=== PATIENT | female | born 1955 | race Asian ===

== ENCOUNTER 2017-06-19 18:28 | Inpatient (IN) | payer MEDICAID ==
[~2017-06-19] VITALS: Ht 162.6 cm; Wt 62.1 kg
[~2017-06-19 18:28] MED LIST: AMLO-512 PO; ASPI-825 PO; CHLO25TA3 PO; ISOS30TA6 PO; LISI40TA4 PO; MAGN400T30 PO; METO-391 PO; RANO500T3 PO; SIMV-261 PO
[2017-06-19] MEDS ORDERED: METF850T2 PO (18:38)
[2017-06-19] MEDS ORDERED: FLUP10 PO (18:38)
[2017-06-19] MEDS ORDERED: CALC-719 PO (18:38)
[2017-06-19] MEDS ORDERED: ATEN100T PO (18:38)
[2017-06-19] MEDS ORDERED: LOSA50TA37 PO (18:38)
[2017-06-19] MEDS ORDERED: ERGO500014 PO (18:38)
[2017-06-19] MEDS ORDERED: RISP4 PO (18:38)
[2017-06-19] MEDS ORDERED: BENZ1TAB10 PO (18:38)
[2017-06-19] MEDS ORDERED: GLIM2 PO (18:38)
[2017-06-19 18:42] LABS: GLUCOSE,POINT OF CARE 83 MG/DL (70-110)
[2017-06-19] MEDS ORDERED: ALBUTEROL SULFATE 2.5 MG/0.5 ML NEB SOLUTION NEB ONE (19:00)
[2017-06-19] MEDS ORDERED: ASPIRIN 81 MG CHEWABLE TABLET PO ONE (19:00)
[2017-06-19] MEDS ORDERED: FUROSEMIDE 40 MG/4 ML VIAL IVP ONE (19:00)
[2017-06-19] MEDS ORDERED: 0.9% SODIUM CHLORIDE 5 ML NEB SOLUTION NEB ONE (19:16)
[2017-06-19 19:44] LABS: BASOPHILS % (AUTO) 0.5 % (0.0-2.0); EOSINOPHILS % (AUTO) 3.3 % (1.0-6.0); HEMOGLOBIN 10.6 g/dL (12.0-16.0); LYMPHOCYTES # (AUTO) 1.2 K/uL (1.0-4.8); LYMPHOCYTES % (AUTO) 16.1 % (22.0-44.0); MEAN CORPUSCULAR HEMOGLOBIN 31.7 pg (26.0-34.0); MEAN CORPUSCULAR HGB CONC 33.2 G/dL (31.0-37.0); MEAN CORPUSCULAR VOLUME 95 fL (80-100); MONOCYTES # (AUTO) 0.8 K/uL (0.1-1.0); MONOCYTES % (AUTO) 9.9 % (2.0-9.0); NEUTROPHILS # (AUTO) 5.4 K/uL (1.8-7.7); NEUTROPHILS % (AUTO) 70.2 % (40.0-70.0); PLATELET COUNT (AUTO) 202 K/uL (150-450); RED BLOOD CELL COUNT(AUTO) 3.35 MIL/uL (4.00-5.20); RED CELL DISTRIBUTION WIDTH 14.3 % (11.5-14.5); WHITE BLOOD COUNT (AUTO) 7.7 K/uL (4.5-11.0)
[2017-06-19 19:55] LABS: ANION GAP 9 mmol/L (8-16); CALCIUM, TOTAL 9.3 mg/dL (8.8-10.5); CARBON DIOXIDE 25 mmol/L (22-29); CHLORIDE 109 mmol/L (98-107); CREATININE 1.26 mg/dL (0.60-1.30); GLOMERULAR FILTR. RATE CALC 43 mL/min (>60); POTASSIUM 4.3 mmol/L (3.5-5.1); SODIUM SERUM 143 mmol/L (136-145); UREA NITROGEN, BLOOD 44 mg/dL (7-18)
[2017-06-19 20:05] LABS: B-TYPE NATRIURETIC PEPTIDE 1120 pg/mL (0-100)
[2017-06-19 20:16] LABS: APPEARANCE,URINE CLEAR (CLEAR); GLUCOSE, URINE (UA) NEGATIVE (NEGATIVE); KETONES,URINE NEGATIVE (NEGATIVE); LEUKOCYTE ESTERASE ,URINE NEGATIVE (NEGATIVE); OCCULT BLOOD,URINE NEGATIVE (NEGATIVE); PROTEIN,URINE NEGATIVE (NEGATIVE)
[2017-06-19 20:19] LABS: ADD UA MICROSCOPIC NO
[2017-06-19 20:19] LABS: ALANINE AMINOTRANSFERASE 116 U/L (12-78); ALBUMIN 3.1 g/dL (3.4-5.0); ASPARTATE AMINOTRANSFERASE 56 U/L (15-37); BILIRUBIN,TOTAL 0.9 mg/dL (0.1-1.0); CREATINE KINASE MB 4.7 ng/mL (0-5); CREATINE KINASE, TOTAL 256 U/L (26-192); TOTAL PROTEIN, SERUM 5.8 g/dL (6.4-8.2)
[2017-06-19] MEDS ORDERED: ACETAMINOPHEN 500 MG TABLET PO ONE (20:30)
[2017-06-19] MEDS ORDERED: ACETAMINOPHEN 325 MG TABLET PO PRN (20:45)
[2017-06-19] MEDS ORDERED: 0.9% SODIUM CHLORIDE 10 ML SYRINGE IVP PRN (20:45)
[2017-06-19] MEDS ORDERED: ONDANSETRON HCL 4 MG/2 ML VIAL IVP PRN (20:45)
[2017-06-19 21:39] VITALS: BP 133/74
[2017-06-19 23:56] VITALS: BP 145/93
[2017-06-20] MEDS ORDERED: INFLUENZA VIRUS VACCINE QVS 2017-18 (3YR+)/PF 60 MCG/0.5 ML SYRINGE IM ONE (00:15)
[2017-06-20 03:35] VITALS: BP 129/72
[2017-06-20] MEDS: FUROSEMIDE 20 MG/2 ML VIAL IVP SCH ×3 (04:36→19:53)
[2017-06-20 07:55] VITALS: BP 153/65
[2017-06-20] MEDS: ASPIRIN 81 MG CHEWABLE TABLET PO SCH (08:39)
[2017-06-20] MEDS: ISOSORBIDE MONONITRATE 30 MG ER TABLET PO SCH (08:40)
[2017-06-20] MEDS: CALCIUM OYSTER SHELL 500 MG TABLET PO SCH (08:40)
[2017-06-20] MEDS: LOSARTAN POTASSIUM 50 MG TABLET PO SCH (08:40)
[2017-06-20] MEDS: BENZTROPINE MESYLATE 1 MG TABLET PO SCH (08:40)
[2017-06-20] MEDS: RisperiDONE 4 MG TABLET PO SCH (08:41)
[2017-06-20] MEDS: FluPHENAZine HCL 10 MG TABLET PO SCH (08:41)
[2017-06-20] MEDS: ATENOLOL 100 MG TABLET PO SCH (08:41)
[2017-06-20] MEDS ORDERED: ERGOCALCIFEROL (VIT D2) 50,000 UNITS CAPSULE PO SCH (09:00)
[2017-06-20 10:14] LABS: CALCIUM, TOTAL 9.2 mg/dL (8.8-10.5); CREATININE 1.21 mg/dL (0.60-1.30); MAGNESIUM 1.4 mg/dL (1.80-2.40); POTASSIUM 3.6 mmol/L (3.5-5.1)
[2017-06-20] MEDS ORDERED: POTASSIUM CHLORIDE 20 MEQ ER TABLET PO ONE (11:15)
[2017-06-20 11:16] VITALS: BP 137/85
[2017-06-20] MEDS ORDERED: MAGNESIUM SULFATE 4 GM/WATER 100 ML IV ONE (12:00)
[2017-06-20] MEDS ORDERED: SODIUM CHLORIDE 0.9% 100 ML ONE (12:21)
[2017-06-20 15:33] VITALS: BP 138/62
[2017-06-20] MEDS: ACETAMINOPHEN 325 MG TABLET PO PRN (17:25)
[2017-06-20 19:30] VITALS: BP 130/75
[2017-06-20 23:55] VITALS: BP 160/90
[2017-06-21 04:14] VITALS: BP 145/74
[2017-06-21] MEDS: ACETAMINOPHEN 325 MG TABLET PO PRN ×3 (04:45→17:14)
[2017-06-21 06:42] LABS: BASOPHILS % (AUTO) 0.5 % (0.0-2.0); HEMATOCRIT 33.3 % (36-46); HEMOGLOBIN 10.9 g/dL (12.0-16.0); LYMPHOCYTES # (AUTO) 0.7 K/uL (1.0-4.8); LYMPHOCYTES % (AUTO) 8.9 % (22.0-44.0); MEAN CORPUSCULAR HEMOGLOBIN 31.8 pg (26.0-34.0); MEAN CORPUSCULAR HGB CONC 32.8 G/dL (31.0-37.0); MEAN CORPUSCULAR VOLUME 97 fL (80-100); MONOCYTES # (AUTO) 0.7 K/uL (0.1-1.0); MONOCYTES % (AUTO) 8.6 % (2.0-9.0); NEUTROPHILS # (AUTO) 6.5 K/uL (1.8-7.7); PLATELET COUNT (AUTO) 174 K/uL (150-450); RED BLOOD CELL COUNT(AUTO) 3.44 MIL/uL (4.00-5.20); RED CELL DISTRIBUTION WIDTH 14.4 % (11.5-14.5); WHITE BLOOD COUNT (AUTO) 8.2 K/uL (4.5-11.0)
[2017-06-21 07:11] VITALS: BP 164/88
[2017-06-21 07:27] LABS: ALBUMIN 3.1 g/dL (3.4-5.0); CALCIUM, TOTAL 8.6 mg/dL (8.8-10.5); CHOL/HDL RATIO 2.6 (3.9-5.7); CREATININE 1.14 mg/dL (0.60-1.30); MAGNESIUM 1.8 mg/dL (1.80-2.40); POTASSIUM 3.8 mmol/L (3.5-5.1); TOTAL PROTEIN, SERUM 6.2 g/dL (6.4-8.2)
[2017-06-21 08:06] LABS: HEMOGLOBIN A1C 6.3 % (4.5-6.2)
[2017-06-21] MEDS: LOSARTAN POTASSIUM 50 MG TABLET PO SCH (08:29)
[2017-06-21] MEDS: ISOSORBIDE MONONITRATE 30 MG ER TABLET PO SCH (08:29)
[2017-06-21] MEDS: FluPHENAZine HCL 10 MG TABLET PO SCH (08:29)
[2017-06-21] MEDS: CALCIUM OYSTER SHELL 500 MG TABLET PO SCH (08:29)
[2017-06-21] MEDS: FUROSEMIDE 20 MG/2 ML VIAL IVP SCH ×2 (08:29→19:59)
[2017-06-21] MEDS: BENZTROPINE MESYLATE 1 MG TABLET PO SCH (08:29)
[2017-06-21] MEDS: ASPIRIN 81 MG CHEWABLE TABLET PO SCH (08:29)
[2017-06-21] MEDS: ATENOLOL 100 MG TABLET PO SCH (08:30)
[2017-06-21] MEDS: RisperiDONE 4 MG TABLET PO SCH (08:30)
[2017-06-21 11:20] VITALS: BP 153/77
[2017-06-21 11:28] VITALS: BP 132/58
[2017-06-21 15:39] VITALS: BP 130/52
[2017-06-21 18:09] LABS: GLUCOSE,POINT OF CARE 175 MG/DL (70-110)
[2017-06-21 19:46] VITALS: BP 136/74
[2017-06-22] VITALS (7 sets, daily range): BP systolic 122–149; BP diastolic 68–89
[2017-06-22 06:44] LABS: CALCIUM, TOTAL 8.5 mg/dL (8.8-10.5); CREATININE 1.04 mg/dL (0.60-1.30); MAGNESIUM 1.7 mg/dL (1.80-2.40); POTASSIUM 3.9 mmol/L (3.5-5.1)
[2017-06-22] MEDS: ASPIRIN 81 MG CHEWABLE TABLET PO SCH (08:20)
[2017-06-22] MEDS: FUROSEMIDE 20 MG/2 ML VIAL IVP SCH ×2 (08:20→22:01)
[2017-06-22] MEDS: RisperiDONE 4 MG TABLET PO SCH (08:21)
[2017-06-22] MEDS: FluPHENAZine HCL 10 MG TABLET PO SCH (08:21)
[2017-06-22] MEDS: ATENOLOL 100 MG TABLET PO SCH (08:21)
[2017-06-22] MEDS: CALCIUM OYSTER SHELL 500 MG TABLET PO SCH (08:21)
[2017-06-22] MEDS: LOSARTAN POTASSIUM 50 MG TABLET PO SCH (08:21)
[2017-06-22] MEDS: ISOSORBIDE MONONITRATE 30 MG ER TABLET PO SCH (08:21)
[2017-06-22] MEDS: BENZTROPINE MESYLATE 1 MG TABLET PO SCH (08:21)
[2017-06-22] MEDS ORDERED: MAGNESIUM SULFATE 2 GM in DEXTROSE 5%-WATER 50 ML IV ONE (15:15)
[2017-06-22] MEDS ORDERED: ALBUTEROL SULFATE 2.5 MG/0.5 ML NEB SOLUTION NEB PRN (15:15)
[2017-06-22] MEDS ORDERED: IPRATROPIUM BROMIDE 0.5 MG/2.5 ML NEB SOLUTION NEB PRN (15:15)
[2017-06-23 05:19] VITALS: BP 143/88
[2017-06-23 08:09] VITALS: BP 161/79
[2017-06-23] MEDS ORDERED: ATENOLOL 50 MG TABLET PO SCH (09:00)
[2017-06-23] MEDS: ASPIRIN 81 MG CHEWABLE TABLET PO SCH (09:24)
[2017-06-23] MEDS: ISOSORBIDE MONONITRATE 30 MG ER TABLET PO SCH (09:24)
[2017-06-23] MEDS: FUROSEMIDE 20 MG/2 ML VIAL IVP SCH ×2 (09:25→21:03)
[2017-06-23] MEDS: RisperiDONE 4 MG TABLET PO SCH (09:25)
[2017-06-23] MEDS: FluPHENAZine HCL 10 MG TABLET PO SCH (09:25)
[2017-06-23] MEDS: LOSARTAN POTASSIUM 50 MG TABLET PO SCH (09:25)
[2017-06-23] MEDS: BENZTROPINE MESYLATE 1 MG TABLET PO SCH (09:25)
[2017-06-23] MEDS: CALCIUM OYSTER SHELL 500 MG TABLET PO SCH (09:25)
[2017-06-23] MEDS: AmLODIPine BESYLATE 5 MG TABLET PO SCH ×2 (09:45→11:16)
[2017-06-23 09:47] LABS: CALCIUM, TOTAL 8.6 mg/dL (8.8-10.5); CREATININE 0.99 mg/dL (0.60-1.30); POTASSIUM 4.2 mmol/L (3.5-5.1)
[2017-06-23 12:00] VITALS: BP 155/79
[2017-06-23 16:22] VITALS: BP 140/85
[2017-06-23 19:36] VITALS: BP 119/79
[2017-06-23 23:17] VITALS: BP 122/63
[2017-06-24 04:16] VITALS: BP 135/86
[2017-06-24 07:19] VITALS: BP 165/76
[2017-06-24 07:44] LABS: CALCIUM, TOTAL 9.1 mg/dL (8.8-10.5); CREATININE 0.95 mg/dL (0.60-1.30); MAGNESIUM 1.9 mg/dL (1.80-2.40)
[2017-06-24] MEDS: FUROSEMIDE 20 MG/2 ML VIAL IVP SCH (08:25)
[2017-06-24] MEDS: CALCIUM OYSTER SHELL 500 MG TABLET PO SCH (08:26)
[2017-06-24] MEDS: FluPHENAZine HCL 10 MG TABLET PO SCH (08:26)
[2017-06-24] MEDS: BENZTROPINE MESYLATE 1 MG TABLET PO SCH (08:26)
[2017-06-24] MEDS: AmLODIPine BESYLATE 5 MG TABLET PO SCH (08:26)
[2017-06-24] MEDS: LOSARTAN POTASSIUM 50 MG TABLET PO SCH (08:26)
[2017-06-24] MEDS: ISOSORBIDE MONONITRATE 30 MG ER TABLET PO SCH (08:26)
[2017-06-24] MEDS: RisperiDONE 4 MG TABLET PO SCH (08:26)
[2017-06-24] MEDS: ASPIRIN 81 MG CHEWABLE TABLET PO SCH (08:26)
[2017-06-24 11:42] VITALS: BP 121/87
[2017-06-24] MEDS: ACETAMINOPHEN 325 MG TABLET PO PRN (13:06)
[2017-06-24] MEDS ORDERED: FURO20 PO (14:12)
[2017-06-24] MEDS ORDERED: SLOWK8 PO (14:14)
[2017-06-24 15:54] VITALS: BP 118/68
== END 2017-06-24 17:05 | disposition home or self-care (01) | DRG 194 ==
LOC: EMS 18:31 → 5S 20:47
PROVIDERS: ADMIT Family Medicine; ATTEND Family Medicine
PROC: 3E0234Z Introduction of Serum, Toxoid and Vaccine into Muscle, Percutaneous Approach (ICD-10-PCS; principal; 2017-06-20)
DX: I11.0 Hypertensive heart disease with heart failure (principal); E44.1 Mild protein-calorie malnutrition; I48.91 Unspecified atrial fibrillation; E11.9 Type 2 diabetes mellitus without complications; R00.1 Bradycardia, unspecified; I50.9 Heart failure, unspecified; I25.10 Atherosclerotic heart disease of native coronary artery without angina pectoris; Z68.23 Body mass index [BMI] 23.0-23.9, adult; Z79.82 Long term (current) use of aspirin; Z83.3 Family history of diabetes mellitus; Z82.49 Family history of ischemic heart disease and other diseases of the circulatory system; Z23 Encounter for immunization
CPT/HCPCS: 82962; 83036; 83735; 90471; 93005; 93306; 94640; 96374; 99291; J1940; J3475; J7050; J7060

== ENCOUNTER 2017-12-07 15:57 | Emergency (ER) | payer MEDICAID ==
[~2017-12-07] VITALS: Ht 157.5 cm; Wt 68.2 kg
[~2017-12-07 15:57] MED LIST changes: -AMLO-512 PO; +ATEN100T PO; +BENZ1TAB10 PO; +CALC-719 PO; -CHLO25TA3 PO; +ERGO500014 PO; +FLUP10 PO; +FURO20 PO; +GLIM2 PO; -LISI40TA4 PO; +LOSA50TA37 PO; -MAGN400T30 PO; +METF850T2 PO; -METO-391 PO; -RANO500T3 PO; +RISP4 PO; -SIMV-261 PO; +SLOWK8 PO
[2017-12-07] MEDS ORDERED: ERGO2000 PO (16:13)
[2017-12-07] MEDS ORDERED: NITR.4 SL (16:13)
[2017-12-07 16:17] LABS: GLUCOSE,POINT OF CARE 173 MG/DL (70-110)
[2017-12-07 18:31] VITALS: BP 138/84
== END 2017-12-07 18:36 | disposition home or self-care (01) ==
LOC: EMS 15:57
DX: S00.12XA Contusion of left eyelid and periocular area, initial encounter (principal); X58.XXXA Exposure to other specified factors, initial encounter; Y93.89 Activity, other specified; Y92.89 Other specified places as the place of occurrence of the external cause; Y99.8 Other external cause status
CPT/HCPCS: 70450; 99284

== ENCOUNTER 2018-01-22 20:13 | Emergency (ER) | payer MEDICAID ==
[~2018-01-22] VITALS: Ht 157.5 cm; Wt 68.0 kg
[~2018-01-22 20:13] MED LIST changes: +ERGO2000 PO; -ERGO500014 PO; -FLUP10 PO; +NITR.4 SL
[2018-01-22 21:03] LABS: GLUCOSE,POINT OF CARE 109 MG/DL (70-110)
[2018-01-22 22:50] VITALS: BP 135/71
== END 2018-01-22 22:57 | disposition home or self-care (01) ==
LOC: EMS 20:15
DX: S00.11XA Contusion of right eyelid and periocular area, initial encounter (principal); S00.83XA Contusion of other part of head, initial encounter; W18.39XA Other fall on same level, initial encounter; Y93.89 Activity, other specified; Y92.89 Other specified places as the place of occurrence of the external cause; Y99.8 Other external cause status
CPT/HCPCS: 70450; 99284

== ENCOUNTER 2018-03-19 20:07 | Emergency (ER) | payer MEDICAID ==
[~2018-03-19] VITALS: Ht 162.6 cm; Wt 63.6 kg
[2018-03-19] MEDS ORDERED: RISP2 PO (20:17)
[2018-03-19] MEDS ORDERED: METF500T6 PO (20:17)
[2018-03-19 20:23] LABS: GLUCOSE,POINT OF CARE 99 MG/DL (70-110)
[2018-03-19 22:16] VITALS: BP 163/96
== END 2018-03-20 00:18 | disposition home or self-care (01) ==
LOC: EMS 20:08
DX: S01.01XA Laceration without foreign body of scalp, initial encounter (principal); E11.9 Type 2 diabetes mellitus without complications; I10 Essential (primary) hypertension; Z79.82 Long term (current) use of aspirin; Z79.899 Other long term (current) drug therapy; Z79.84 Long term (current) use of oral hypoglycemic drugs; W45.8XXA Other foreign body or object entering through skin, initial encounter; Y93.89 Activity, other specified; Y92.89 Other specified places as the place of occurrence of the external cause; Y99.8 Other external cause status
CPT/HCPCS: 12001; 70450; 99284

== ENCOUNTER 2021-08-01 21:20 | Emergency (ER) | payer MEDICAID ==
[~2021-08-01] VITALS: Ht 157.5 cm; Wt 65.9 kg
[~2021-08-01 21:20] MED LIST changes: -ATEN100T PO; +ATEN100T92 PO; -FURO20 PO; -ISOS30TA6 PO; +ISOS30TA92 PO; -LOSA50TA37 PO; +METF-1211 PO; -METF850T2 PO; -NITR.4 SL; +NITR0.4T52 SL; +RISP2TAB45 PO; -RISP4 PO; -SLOWK8 PO
[2021-08-01] MEDS ORDERED: ATOR20TA65 PO (22:25)
[2021-08-01] MEDS ORDERED: OS500 PO (22:25)
[2021-08-01] MEDS ORDERED: FURO-152 PO (22:25)
[2021-08-01] MEDS ORDERED: AMLO-257 PO (22:25)
[2021-08-01] MEDS ORDERED: LOSA100T58 PO (22:25)
[2021-08-01] MEDS ORDERED: RIVA15TA PO (22:25)
[2021-08-01 22:49] LABS: BASOPHILS % (AUTO) 0.8 % (0.0-2.0); EOSINOPHILS % (AUTO) 6.2 % (1.0-6.0); LYMPHOCYTES # (AUTO) 0.9 K/uL (1.0-4.8); MEAN CORPUSCULAR HEMOGLOBIN 31.1 pg (26.0-34.0); MEAN CORPUSCULAR HGB CONC 33.3 G/dL (31.0-37.0); MEAN CORPUSCULAR VOLUME 93 fL (80-100); MONOCYTES # (AUTO) 0.6 K/uL (0.1-1.0); MONOCYTES % (AUTO) 9.3 % (2.0-9.0); NEUTROPHILS # (AUTO) 4.6 K/uL (1.8-7.7); NEUTROPHILS % (AUTO) 69.7 % (40.0-70.0); PLATELET COUNT (AUTO) 235 K/uL (150-450); RED BLOOD CELL COUNT(AUTO) 3.54 MIL/uL (4.00-5.20)
[2021-08-01 22:59] LABS: CALCIUM, TOTAL 9.5 mg/dL (8.8-10.5); CREATININE 1.1 mg/dL (0.60-1.30); POTASSIUM 5.1 mmol/L (3.5-5.1)
[2021-08-01 23:05] LABS: ALBUMIN 3.5 g/dL (3.4-5.0); BILIRUBIN,TOTAL 0.6 mg/dL (0.1-1.0); TOTAL PROTEIN, SERUM 7.1 g/dL (6.4-8.2)
[2021-08-02 11:41] VITALS: BP 128/80
== END 2021-08-02 11:42 | disposition home or self-care (01) ==
LOC: EMS 21:21
DX: R07.89 Other chest pain (principal); I48.91 Unspecified atrial fibrillation; I11.0 Hypertensive heart disease with heart failure; I50.9 Heart failure, unspecified; E11.9 Type 2 diabetes mellitus without complications; Z79.82 Long term (current) use of aspirin; Z79.84 Long term (current) use of oral hypoglycemic drugs; Z79.899 Other long term (current) drug therapy
CPT/HCPCS: 71045; 80053; 82962; 83690; 83880; 84484; 85025; 93005; 99285; 36415-L1; 36415-TC

== ENCOUNTER 2022-04-24 15:30 | Emergency (ER) | payer MEDICARE, MEDICAID ==
[~2022-04-24] VITALS: Ht 157.5 cm; Wt 59.1 kg
[~2022-04-24 15:30] MED LIST changes: +AMLO-257 PO; +ATOR20TA65 PO; -BENZ1TAB10 PO; +BENZ1TAB96 PO; +FURO-152 PO; +LOSA100T58 PO; +OS500 PO; +RIVA15TA PO
[2022-04-24] MEDS ORDERED: METF-1185 PO (15:40)
[2022-04-24] MEDS ORDERED: AMLO-257 PO (15:40)
[2022-04-24 16:02] LABS: BASOPHILS % (AUTO) 0.7 % (0.0-2.0); EOSINOPHILS % (AUTO) 3.6 % (1.0-6.0); HEMATOCRIT 39.8 % (36-46); HEMOGLOBIN 12.7 g/dL (12.0-16.0); LYMPHOCYTES # (AUTO) 1.2 K/uL (1.0-4.8); LYMPHOCYTES % (AUTO) 21.4 % (22.0-44.0); MEAN CORPUSCULAR HEMOGLOBIN 30.5 pg (26.0-34.0); MEAN CORPUSCULAR HGB CONC 31.9 G/dL (31.0-37.0); MEAN CORPUSCULAR VOLUME 96 fL (80-100); MONOCYTES # (AUTO) 0.3 K/uL (0.1-1.0); MONOCYTES % (AUTO) 5.6 % (2.0-9.0); NEUTROPHILS # (AUTO) 3.7 K/uL (1.8-7.7); NEUTROPHILS % (AUTO) 68.7 % (40.0-70.0); PLATELET COUNT (AUTO) 190 K/uL (150-450); RED BLOOD CELL COUNT(AUTO) 4.16 MIL/uL (4.00-5.20); RED CELL DISTRIBUTION WIDTH 13.4 % (11.5-14.5)
[2022-04-24 16:13] LABS: INR 1.1 (0.9-1.1); PROTHROMBIN TIME 11.4 SEC (9.4-11.6)
[2022-04-24] MEDS ORDERED: BACITRACIN 28 GM OINTMENT TP ONE (16:15)
[2022-04-24] MEDS ORDERED: CHOL25TA4 PO (16:42)
[2022-04-24] MEDS ORDERED: OS500 PO (16:42)
[2022-04-24 16:46] LABS: CALCIUM, TOTAL 9.5 mg/dL (8.8-10.5); CREATININE 0.93 mg/dL (0.60-1.30); POTASSIUM 4.1 mmol/L (3.5-5.1)
[2022-04-24 16:52] LABS: ALBUMIN 4.1 g/dL (3.4-5.0); BILIRUBIN,TOTAL 1.2 mg/dL (0.1-1.0); TOTAL PROTEIN, SERUM 7.7 g/dL (6.4-8.2)
[2022-04-24 18:06] VITALS: BP 116/75
== END 2022-04-24 18:26 | disposition home or self-care (01) ==
LOC: EMS 15:30
DX: S00.01XA Abrasion of scalp, initial encounter (principal); I11.0 Hypertensive heart disease with heart failure; I50.9 Heart failure, unspecified; F03.90 Unspecified dementia, unspecified severity, without behavioral disturbance, psychotic disturbance, mood disturbance, and anxiety; E11.9 Type 2 diabetes mellitus without complications; F29 Unspecified psychosis not due to a substance or known physiological condition; I34.0 Nonrheumatic mitral (valve) insufficiency; W19.XXXA Unspecified fall, initial encounter; Y93.89 Activity, other specified; Y92.89 Other specified places as the place of occurrence of the external cause; Y99.8 Other external cause status
CPT/HCPCS: 70450; 72125; 80053; 82962; 83880; 84484; 85025; 85610; 85730; 93005; 99285

== ENCOUNTER 2022-10-06 15:41 | Inpatient (IN) | payer MEDICARE, MEDICAID ==
[~2022-10-06] VITALS: Ht 160 cm; Wt 65.3 kg
[~2022-10-06 15:41] MED LIST changes: -ASPI-825 PO; -CALC-719 PO; +CHOL25TA4 PO; -ERGO2000 PO; +METF-1185 PO; -METF-1211 PO
[2022-10-06] MEDS ORDERED: DAPA5TAB PO (15:52)
[2022-10-06] MEDS ORDERED: SPIR-37 PO (15:52)
[2022-10-06] MEDS ORDERED: BECL10.6 IH (15:52)
[2022-10-06] MEDS ORDERED: OS500 PO (15:52)
[2022-10-06] MEDS ORDERED: ALBU8HFA IH (15:52)
[2022-10-06] MEDS ORDERED: FLUT15.812 NASAL (15:52)
[2022-10-06] MEDS ORDERED: POTA-189 PO (15:52)
[2022-10-06] MEDS ORDERED: CETI5TAB14 PO (15:52)
[2022-10-06] MEDS ORDERED: MONT-35 PO (15:52)
[2022-10-06] MEDS ORDERED: FAMO20 PO (15:52)
[2022-10-06] MEDS ORDERED: CETI-450 PO (17:39)
[2022-10-06] MEDS ORDERED: BACITRACIN 0.9 GM PACKET OINTMENT TP ONE (17:45)
[2022-10-06] MEDS ORDERED: PERTUSS(ACELL),DIPH,TET VAC/PF 0.5 ML SYRINGE IM. ONE (17:45)
[2022-10-06 18:15] LABS: BASOPHILS % (AUTO) 0.7 % (0.0-2.0); EOSINOPHILS % (AUTO) 4.2 % (1.0-6.0); HEMATOCRIT 35.3 % (36-46); HEMOGLOBIN 11.4 g/dL (12.0-16.0); LYMPHOCYTES # (AUTO) 1.2 K/uL (1.0-4.8); LYMPHOCYTES % (AUTO) 14.3 % (22.0-44.0); MEAN CORPUSCULAR HGB CONC 32.2 G/dL (31.0-37.0); MEAN CORPUSCULAR VOLUME 93 fL (80-100); MONOCYTES # (AUTO) 0.7 K/uL (0.1-1.0); MONOCYTES % (AUTO) 8.6 % (2.0-9.0); NEUTROPHILS # (AUTO) 6.2 K/uL (1.8-7.7); NEUTROPHILS % (AUTO) 72.2 % (40.0-70.0); PLATELET COUNT (AUTO) 195 K/uL (150-450); RED CELL DISTRIBUTION WIDTH 14.1 % (11.5-14.5)
[2022-10-06 18:22] LABS: CALCIUM, TOTAL 9.3 mg/dL (8.8-10.5); CREATININE 1.32 mg/dL (0.60-1.30); POTASSIUM 4.8 mmol/L (3.5-5.1)
[2022-10-06 18:26] LABS: INR 1.1 (0.9-1.1); PROTHROMBIN TIME 11.5 SEC (9.4-11.6)
[2022-10-06 18:47] LABS: ALBUMIN 3.7 g/dL (3.4-5.0); BILIRUBIN,TOTAL 0.6 mg/dL (0.1-1.0); MAGNESIUM 1.6 mg/dL (1.80-2.40); PHOSPHORUS 3.9 mg/dL (2.5-4.9); TOTAL PROTEIN, SERUM 7.1 g/dL (6.4-8.2)
[2022-10-06] MEDS ORDERED: MAGNESIUM SULFATE 1 GM in DEXTROSE 5%-WATER 50 ML IV ONE (19:15)
[2022-10-06] MEDS ORDERED: ACETAMINOPHEN 325 MG TABLET PO PRN (19:30)
[2022-10-06] MEDS ORDERED: ONDANSETRON HCL 4 MG/2 ML VIAL IVP PRN (19:30)
[2022-10-06 19:33] LABS: COVID AG,FIA SOURCE NASOPHARYNGEAL
[2022-10-06 20:38] LABS: RETICULOCYTE % (AUTO) 2.4 % (0.5-2.3)
[2022-10-06 20:45] LABS: % IRON SATURATION 10.1 % (22-44)
[2022-10-06] MEDS: DOCUSATE SODIUM 100 MG CAPSULE PO SCH (21:00)
[2022-10-06] MEDS ORDERED: PIPERACILLIN SODIUM/TAZOBACTAM 2.25 GM in DEXTROSE 5%-WATER 50 ML IV SCH (22:00)
[2022-10-06] MEDS ORDERED: DEXTROSE 50%-WATER 25 GM/50 ML SYRINGE IVP PRN (22:00)
[2022-10-06] MEDS ORDERED: NITROGLYCERIN 0.4 MG SUBLINGUAL TABLET #25 SL PRN (22:00)
[2022-10-06] MEDS ORDERED: HALOPERIDOL LACTATE 5 MG/ML VIAL IM ONE (22:00)
[2022-10-06] MEDS ORDERED: MAGNESIUM SULFATE 2 GM/WATER 50 ML IV ONE (22:00)
[2022-10-07 01:19] VITALS: BP 138/66
[2022-10-07] MEDS ORDERED: SODIUM CHLORIDE 0.9% 250 ML IV ONE (03:27)
[2022-10-07] MEDS ORDERED: HALOPERIDOL LACTATE 5 MG/ML VIAL IM ONE (04:45)
[2022-10-07 05:25] VITALS: BP 140/77
[2022-10-07] MEDS: MONTELUKAST SODIUM 10 MG TABLET PO SCH (08:17)
[2022-10-07] MEDS: RisperiDONE 2 MG TABLET PO SCH (08:18)
[2022-10-07] MEDS: AmLODIPine BESYLATE 5 MG TABLET PO SCH (08:18)
[2022-10-07] MEDS: DOCUSATE SODIUM 100 MG CAPSULE PO SCH ×2 (08:18→20:05)
[2022-10-07] MEDS: CETIRIZINE HCL 10 MG TABLET PO SCH (08:18)
[2022-10-07 08:21] VITALS: BP 127/71
[2022-10-07] MEDS: CALCIUM [CALCIUM CARB 1250MG] 500 MG TABLET PO SCH (08:22)
[2022-10-07] MEDS: SPIRONOLACTONE 25 MG TABLET PO SCH (08:22)
[2022-10-07] MEDS ORDERED: BENZTROPINE MESYLATE 1 MG TABLET PO SCH (09:00)
[2022-10-07] MEDS ORDERED: ATENOLOL 50 MG TABLET PO SCH (09:00)
[2022-10-07] MEDS ORDERED: FAMOTIDINE 20 MG TABLET PO SCH (09:00)
[2022-10-07 11:19] VITALS: BP 124/71
[2022-10-07] MEDS: INSULIN LISPRO 100 UNITS/ML SQ PRN ×2 (12:24→20:10)
[2022-10-07 15:17] VITALS: BP 124/72
[2022-10-07 15:21] LABS: GLUCOMETER DEV NAME(LOC) 5N.1C; GLUCOSE,POINT OF CARE 165 MG/DL (70-110)
[2022-10-07] MEDS: RIVAROXABAN 15 MG TABLET PO SCH (18:27)
[2022-10-07 19:54] VITALS: BP 118/71
[2022-10-07] MEDS: ATORVASTATIN CALCIUM 20 MG TABLET PO SCH (20:05)
[2022-10-07] MEDS: CHOLECALCIFEROL (VIT D3) 1,000 UNITS [25 MCG] TABLET PO SCH (20:05)
[2022-10-07] MEDS: ISOSORBIDE MONONITRATE 30 MG ER TABLET PO SCH (20:05)
[2022-10-07 20:41] LABS: GLUCOMETER DEV NAME(LOC) 5S.2C; GLUCOSE,POINT OF CARE 155 MG/DL (70-110)
[2022-10-08] VITALS (7 sets, daily range): BP systolic 118–168; BP diastolic 65–98
[2022-10-08 03:56] LABS: GLUCOMETER DEV NAME(LOC) 5N.1C; GLUCOSE,POINT OF CARE 113 MG/DL (70-110)
[2022-10-08] MEDS: CALCIUM [CALCIUM CARB 1250MG] 500 MG TABLET PO SCH (08:52)
[2022-10-08] MEDS: AmLODIPine BESYLATE 5 MG TABLET PO SCH (08:52)
[2022-10-08] MEDS: MONTELUKAST SODIUM 10 MG TABLET PO SCH (08:52)
[2022-10-08] MEDS: SPIRONOLACTONE 25 MG TABLET PO SCH (08:52)
[2022-10-08] MEDS: DOCUSATE SODIUM 100 MG CAPSULE PO SCH ×2 (08:52→21:00)
[2022-10-08] MEDS: RisperiDONE 2 MG TABLET PO SCH (08:52)
[2022-10-08] MEDS: CETIRIZINE HCL 10 MG TABLET PO SCH (08:52)
[2022-10-08] MEDS ORDERED: FUROSEMIDE 20 MG TABLET PO SCH (09:00)
[2022-10-08 12:41] LABS: GLUCOMETER DEV NAME(LOC) 5N.1C; GLUCOSE,POINT OF CARE 105 MG/DL (70-110)
[2022-10-08 17:16] LABS: GLUCOMETER DEV NAME(LOC) 5N.1C; GLUCOSE,POINT OF CARE 212 MG/DL (70-110)
[2022-10-08] MEDS: RIVAROXABAN 15 MG TABLET PO SCH (17:24)
[2022-10-08] MEDS: ISOSORBIDE MONONITRATE 30 MG ER TABLET PO SCH (20:23)
[2022-10-08] MEDS: CHOLECALCIFEROL (VIT D3) 1,000 UNITS [25 MCG] TABLET PO SCH (20:23)
[2022-10-08] MEDS: ATORVASTATIN CALCIUM 20 MG TABLET PO SCH (20:23)
[2022-10-08] MEDS: INSULIN LISPRO 100 UNITS/ML SQ PRN (20:25)
[2022-10-09 00:37] VITALS: BP 108/51
[2022-10-09 05:00] VITALS: BP 150/89
[2022-10-09 06:07] LABS: GLUCOMETER DEV NAME(LOC) 5N.1C; GLUCOSE,POINT OF CARE 110 MG/DL (70-110)
[2022-10-09 06:07] LABS: GLUCOMETER DEV NAME(LOC) 5N.1C; GLUCOSE,POINT OF CARE 99 MG/DL (70-110)
[2022-10-09 07:30] VITALS: BP 117/58
[2022-10-09 07:37] LABS: BASOPHILS % (AUTO) 0.8 % (0.0-2.0); EOSINOPHILS % (AUTO) 4.8 % (1.0-6.0); HEMATOCRIT 35.1 % (36-46); HEMOGLOBIN 11.4 g/dL (12.0-16.0); LYMPHOCYTES # (AUTO) 1.5 K/uL (1.0-4.8); LYMPHOCYTES % (AUTO) 24.5 % (22.0-44.0); MEAN CORPUSCULAR HEMOGLOBIN 29.9 pg (26.0-34.0); MEAN CORPUSCULAR HGB CONC 32.3 G/dL (31.0-37.0); MEAN CORPUSCULAR VOLUME 93 fL (80-100); MONOCYTES # (AUTO) 0.6 K/uL (0.1-1.0); MONOCYTES % (AUTO) 10.3 % (2.0-9.0); NEUTROPHILS # (AUTO) 3.7 K/uL (1.8-7.7); NEUTROPHILS % (AUTO) 59.6 % (40.0-70.0); PLATELET COUNT (AUTO) 183 K/uL (150-450); RED CELL DISTRIBUTION WIDTH 14.1 % (11.5-14.5)
[2022-10-09 07:56] LABS: CALCIUM, TOTAL 9.4 mg/dL (8.8-10.5); CREATININE 1.06 mg/dL (0.60-1.30); POTASSIUM 4.9 mmol/L (3.5-5.1); THYROID STIMULATING HORMONE 2.1 uIU/mL (0.36-3.74)
[2022-10-09] MEDS: CETIRIZINE HCL 10 MG TABLET PO SCH (08:53)
[2022-10-09] MEDS: RisperiDONE 2 MG TABLET PO SCH (08:53)
[2022-10-09] MEDS: DOCUSATE SODIUM 100 MG CAPSULE PO SCH ×2 (08:53→20:31)
[2022-10-09] MEDS: MONTELUKAST SODIUM 10 MG TABLET PO SCH (08:54)
[2022-10-09] MEDS: SPIRONOLACTONE 25 MG TABLET PO SCH (08:54)
[2022-10-09] MEDS: CALCIUM [CALCIUM CARB 1250MG] 500 MG TABLET PO SCH (08:54)
[2022-10-09] MEDS: AmLODIPine BESYLATE 5 MG TABLET PO SCH (08:54)
[2022-10-09 11:12] VITALS: BP 117/51
[2022-10-09] MEDS ORDERED: DIGOXIN 125 MCG TABLET PO SCH (12:30)
[2022-10-09] MEDS: INSULIN LISPRO 100 UNITS/ML SQ PRN ×2 (12:39→20:38)
[2022-10-09 15:46] VITALS: BP 146/82
[2022-10-09] MEDS: RIVAROXABAN 15 MG TABLET PO SCH (18:30)
[2022-10-09 20:00] VITALS: BP 136/75
[2022-10-09 20:30] LABS: GLUCOMETER DEV NAME(LOC) 5N.1C; GLUCOSE,POINT OF CARE 319 MG/DL (70-110)
[2022-10-09 20:30] LABS: GLUCOMETER DEV NAME(LOC) 5N.1C; GLUCOSE,POINT OF CARE 79 MG/DL (70-110)
[2022-10-09] MEDS: CHOLECALCIFEROL (VIT D3) 1,000 UNITS [25 MCG] TABLET PO SCH (20:32)
[2022-10-09] MEDS: ATORVASTATIN CALCIUM 20 MG TABLET PO SCH (20:32)
[2022-10-09] MEDS: ISOSORBIDE MONONITRATE 30 MG ER TABLET PO SCH (20:32)
[2022-10-09 21:16] LABS: GLUCOMETER DEV NAME(LOC) 5S.2C; GLUCOSE,POINT OF CARE 309 MG/DL (70-110)
[2022-10-09 21:32] LABS: GLUCOMETER DEV NAME(LOC) 5S.1B; GLUCOSE,POINT OF CARE 216 MG/DL (70-110)
[2022-10-10 00:45] VITALS: BP 132/71
[2022-10-10 06:21] LABS: BASOPHILS % (AUTO) 0.8 % (0.0-2.0); EOSINOPHILS % (AUTO) 6.9 % (1.0-6.0); HEMATOCRIT 38.2 % (36-46); HEMOGLOBIN 12.2 g/dL (12.0-16.0); LYMPHOCYTES # (AUTO) 1.4 K/uL (1.0-4.8); LYMPHOCYTES % (AUTO) 21.3 % (22.0-44.0); MEAN CORPUSCULAR HEMOGLOBIN 29.5 pg (26.0-34.0); MEAN CORPUSCULAR VOLUME 92 fL (80-100); MONOCYTES # (AUTO) 0.6 K/uL (0.1-1.0); MONOCYTES % (AUTO) 9.4 % (2.0-9.0); NEUTROPHILS % (AUTO) 61.6 % (40.0-70.0); PLATELET COUNT (AUTO) 208 K/uL (150-450); RED BLOOD CELL COUNT(AUTO) 4.14 MIL/uL (4.00-5.20)
[2022-10-10 06:36] LABS: ALBUMIN 3.8 g/dL (3.4-5.0); BILIRUBIN,TOTAL 1.1 mg/dL (0.1-1.0); CALCIUM, TOTAL 9.5 mg/dL (8.8-10.5); CREATININE 1.01 mg/dL (0.60-1.30); TOTAL PROTEIN, SERUM 7.5 g/dL (6.4-8.2)
[2022-10-10 08:04] VITALS: BP 122/55
[2022-10-10] MEDS: DOCUSATE SODIUM 100 MG CAPSULE PO SCH (09:06)
[2022-10-10] MEDS: RisperiDONE 2 MG TABLET PO SCH (09:06)
[2022-10-10] MEDS: CETIRIZINE HCL 10 MG TABLET PO SCH (09:06)
[2022-10-10] MEDS: AmLODIPine BESYLATE 5 MG TABLET PO SCH (09:07)
[2022-10-10] MEDS: MONTELUKAST SODIUM 10 MG TABLET PO SCH (09:07)
[2022-10-10] MEDS: SPIRONOLACTONE 25 MG TABLET PO SCH (09:07)
[2022-10-10] MEDS: CALCIUM [CALCIUM CARB 1250MG] 500 MG TABLET PO SCH (09:07)
[2022-10-10 12:10] VITALS: BP 123/76
[2022-10-10] MEDS: INSULIN LISPRO 100 UNITS/ML SQ PRN (12:15)
[2022-10-10] MEDS ORDERED: DIGO125T84 PO (15:12)
[2022-10-10 16:28] VITALS: BP 148/77
[2022-10-10 20:26] LABS: GLUCOMETER DEV NAME(LOC) 5S.1B; GLUCOSE,POINT OF CARE 125 MG/DL (70-110)
[2022-10-11 05:36] LABS: GLUCOMETER DEV NAME(LOC) 5N.1C; GLUCOSE,POINT OF CARE 267 MG/DL (70-110)
[2022-10-11] MEDS ORDERED: DIGOXIN 125 MCG TABLET PO SCH (09:00)
== END 2022-10-10 17:47 | disposition home or self-care (01) | DRG 308 ==
LOC: EMS 15:46 → 5S 10-07 00:47
PROVIDERS: ADMIT Internal Medicine; ATTEND Internal Medicine
PROC: 3E0234Z Introduction of Serum, Toxoid and Vaccine into Muscle, Percutaneous Approach (ICD-10-PCS; principal; 2022-10-06)
DX: I49.5 Sick sinus syndrome (principal); J69.0 Pneumonitis due to inhalation of food and vomit; S06.2XAA Diffuse traumatic brain injury with loss of consciousness status unknown, initial encounter; I48.20 Chronic atrial fibrillation, unspecified; N17.9 Acute kidney failure, unspecified; Z20.822 Contact with and (suspected) exposure to COVID-19; D50.9 Iron deficiency anemia, unspecified; W18.39XA Other fall on same level, initial encounter; F03.90 Unspecified dementia, unspecified severity, without behavioral disturbance, psychotic disturbance, mood disturbance, and anxiety; R58 Hemorrhage, not elsewhere classified; R41.89 Other symptoms and signs involving cognitive functions and awareness; I11.0 Hypertensive heart disease with heart failure; I50.9 Heart failure, unspecified; E11.9 Type 2 diabetes mellitus without complications; I71.21 Aneurysm of the ascending aorta, without rupture; Z79.01 Long term (current) use of anticoagulants; Z23 Encounter for immunization; Y93.89 Activity, other specified; Y92.098 Other place in other non-institutional residence as the place of occurrence of the external cause; Y99.8 Other external cause status; Z79.899 Other long term (current) drug therapy
CPT/HCPCS: 70450; 71045; 71250; 72125; 80048; 80053; 82550; 82962; 83540; 83550; 83735; 83880; 84100; 84443; 84484; 85025; 85045; 85610; 85730; 90715; 92526; 92610; 93005; 93306; 97162; 97166; 97530; 99285; G0378; J1630; J2543; J3475; J7050; J7060; 36415-L1; 36415-TC; U0003